=== PATIENT | male | born 1940 | race African-American/Black ===

== ENCOUNTER 2021-05-26 14:02 | Inpatient (IN) | payer OTHER, MEDICAID ==
[~2021-05-26] VITALS: Ht 167.6 cm; Wt 60.3 kg
[~2021-05-26 14:02] MED LIST: ASPI-1497 MT; ATOR-2 MT; BISO10TA11 MT; FAMO-135 MT; HYDR-4346 MT; LEVE500T98 MT; LOSA1TAB40 MT; MIRT-89 MT; TAMS-11 PO
[2021-05-26] MEDS ORDERED: SODIUM CHLORIDE 0.9% 1000ML BAG (SEPSIS BOLUS) IV ONE (14:30)
[2021-05-26 15:19] LABS: HEMATOCRIT. 33.7 % (42.0-52.0); HEMOGLOBIN. 10.8 g/dL (14.0-18.0); MEAN CORPUSCULAR HEMOGLOBIN 25.7 pg (28.0-32.0); MEAN CORPUSCULAR VOLUME 79.8 fL (80.0-94.0); RED BLOOD CELL COUNT 4.22 mill/uL (4.7-6.1); RED CELL DISTRIBUTION WIDTH 23.7 % (11.6-14.6)
[2021-05-26 15:23] LABS: CHLORIDE 107 mEq/L (98-107)
[2021-05-26 15:42] LABS: MEAN PLATELET VOLUME 9.6 fl (7.4-10.4); PLATELET 64 x1000/uL (130-400)
[2021-05-26 16:07] LABS: PLATELET ESTIMATE DECREASED
[2021-05-26] MEDS ORDERED: PIPERACILLIN/TAZ 3.375G PREMIX 50 ML IV ONE (16:45)
[2021-05-26] MEDS ORDERED: VANCOMYCIN 1 G PREMIX 200 ML IV ONE (16:45)
[2021-05-26] MEDS ORDERED: ACETAMINOPHEN 650MG SUPP PR PRN (21:15)
[2021-05-26] MEDS ORDERED: ONDANSETRON HCL 4MG/2ML INJ IV PRN (21:15)
[2021-05-26] MEDS ORDERED: SODIUM CHLORIDE 0.45% 1,000 ML IV SCH (22:00)
[2021-05-26] MEDS: PANTOPRAZOLE SODIUM 40 MG/VIAL IV SCH (23:37)
[2021-05-27] VITALS (61 sets, daily range): BP systolic 47–171; BP diastolic 24–114
[2021-05-27] MEDS ORDERED: NALOXONE HCL 0.4MG/ML VIAL IV PRN (04:30)
[2021-05-27] MEDS: DEXT 5%/0.45% NACL 1000ML 1,000 ML IV SCH ×2 (05:19→21:02)
[2021-05-27] MEDS: BLOOD SUGAR DIAGNOSTIC STRIP TEST SCH ×4 (06:13→21:02)
[2021-05-27] MEDS: DEXTROSE 50% WATER 50ML SYRINGE IV PRN ×2 (06:19→21:48)
[2021-05-27] MEDS: INSULIN LISPRO 100 UNITS/ML SUBCUT SCH ×4 (07:20→21:00)
[2021-05-27] MEDS: PANTOPRAZOLE SODIUM 40 MG/VIAL IV SCH ×2 (08:02→21:01)
[2021-05-27] MEDS: HYDROMORPHONE HCL/PF 2MG/ML CPJ IV PRN ×2 (09:53→23:20)
[2021-05-27] MEDS ORDERED: IPRATROPIUM/ALBUTEROL 0.5-3(2.5)MG/3ML NEB HHN PRN (12:45)
[2021-05-27] MEDS ORDERED: TAMSULOSIN HCL 0.4MG SR CAPSULE PO SCH (12:45)
[2021-05-27] MEDS ORDERED: LIDOCAINE HCL 1% 20ML VIAL (Pyxis) INJ ONE (13:39)
[2021-05-27] MEDS ORDERED: LEVOFLOXACIN 250MG PREMIX 50 ML IV SCH (14:00)
[2021-05-27] MEDS: PHENYLEPHRINE 100 MG in DEXT 5% WATER 240 ML IV PRN (14:27)
[2021-05-27] MEDS: METRONIDAZOLE 500 MG PREMIX 100 ML IV SCH (14:34)
[2021-05-27 14:48] LABS: HEMATOCRIT. 29.3 % (42.0-52.0); HEMOGLOBIN. 9.6 g/dL (14.0-18.0); MEAN CORPUSCULAR HEMOGLOBIN 26.3 pg (28.0-32.0); RED BLOOD CELL COUNT 3.66 mill/uL (4.7-6.1); RED CELL DISTRIBUTION WIDTH 23.2 % (11.6-14.6)
[2021-05-27 14:54] LABS: CHLORIDE 110 mEq/L (98-107)
[2021-05-27 15:01] LABS: TOTAL IRON BINDING CAPACITY 210 ug/dL (250-450)
[2021-05-27 15:04] LABS: PLATELET 39 x1000/uL (130-400)
[2021-05-27 15:31] LABS: CLARITY URINE CLOUDY (CLEAR); COLOR URINE DARK YELLOW (YELLOW); KETONES URINE NEGATIVE (NEGATIVE); LEUKOCYTE ESTERASE URINE TRACE (NEGATIVE); NITRITE URINE NEGATIVE (NEGATIVE); OCCULT BLOOD URINE 1+ (NEGATIVE); PROTEIN URINE 3+ (NEGATIVE); SPECIFIC GRAVITY URINE 1.015 (1.005-1.030); UROBILINOGEN URINE 0.2 E.U./dL (0.2-1.0)
[2021-05-27 15:50] LABS: *AMPHETAMINES SCREEN URINE NEGATIVE (NEGATIVE); *BARBITURATES SCREEN URINE NEGATIVE (NEGATIVE); *BENZODIAZEPINES SCREEN URINE NEGATIVE (NEGATIVE); *COCAINE SCREEN URINE NEGATIVE (NEGATIVE)
[2021-05-27 15:52] LABS: CANNABINOID URINE SCREEN NEGATIVE (NEGATIVE); METHADONE URINE SCREEN NEGATIVE (NEGATIVE); OPIATES URINE SCREEN NEGATIVE (NEGATIVE); PHENCYCLIDINE URINE SCREEN NEGATIVE (NEGATIVE)
[2021-05-27 20:16] LABS: PLATELET ESTIMATE MARKEDLY DECREASED
[2021-05-27] MEDS ORDERED: SODIUM BICARBONATE 8.4% 1 MEQ/ML 50ML SYR IV NR (20:30)
[2021-05-27] MEDS: LEVETIRACETAM 500MG PREMIX 100 ML IV SCH (21:01)
[2021-05-27 21:10] LABS: BG BASE EXCESS -9.6 mmol/L (-2.0-2.0); BG CARBOXYHEMOGLOBIN 0.2 % (0.5-1.5); BG DEOXYHEMOGLOBIN 4.9 % (0.0-5.0); BG FRACTION INSPIRED OXYGEN 36; BG HCO3 ACT 16.6 mmol/L (22.0-26.0); BG METHEMOGLOBIN 0.3 % (0.0-1.5); BG OXYGEN SATURATION 95.1 % (92.0-98.5); BG OXYHEMOGLOBIN 94.6 % (94.0-97.0); BG PH 7.269 (7.350-7.450); BG PO2 88.1 mmHg (75.0-100.0); BG SAMPLE SITE RIGHT RADIAL; BG TOTAL HEMOGLOBIN 10.4 g/dL (12.0-18.0); BG VENT MODE NASAL CANNULA
[2021-05-27 21:58] LABS: INR 1.5; PARTIAL THROMBOPLASTIN TIME 60.5 sec (23.4-31.0); PROTHROMBIN TIME 15.6 sec (9.6-11.0)
[2021-05-28] VITALS (101 sets, daily range): BP systolic 57–159; BP diastolic 33–126
[2021-05-28] MEDS: PHENYLEPHRINE 100 MG in DEXT 5% WATER 240 ML IV PRN ×3 (01:23→21:29)
[2021-05-28] MEDS: METRONIDAZOLE 500 MG PREMIX 100 ML IV SCH ×4 (01:23→21:25)
[2021-05-28] MEDS: HYDROMORPHONE HCL/PF 2MG/ML CPJ IV PRN (07:11)
[2021-05-28] MEDS: VASOPRESSIN 20 UNIT in SODIUM CHLORIDE 0.9% 99 ML IV PRN ×2 (07:19→17:13)
[2021-05-28] MEDS: DEXT 5%/0.45% NACL 1000ML 1,000 ML IV SCH (07:41)
[2021-05-28] MEDS: INSULIN LISPRO 100 UNITS/ML SUBCUT SCH ×3 (08:00→17:57)
[2021-05-28] MEDS: BLOOD SUGAR DIAGNOSTIC STRIP TEST SCH ×4 (08:00→21:13)
[2021-05-28] MEDS: LEVETIRACETAM 500MG PREMIX 100 ML IV SCH ×2 (08:03→21:25)
[2021-05-28] MEDS: PANTOPRAZOLE SODIUM 40 MG/VIAL IV SCH ×2 (08:06→16:48)
[2021-05-28] MEDS ORDERED: EPINEPHRINE 0.1MG/ML (1:10,000) 10ML SYR ONE (08:16)
[2021-05-28] MEDS ORDERED: SODIUM BICARBONATE 8.4% 1 MEQ/ML 50ML SYR IV ONE (08:16)
[2021-05-28] MEDS ORDERED: VECURONIUM BROMIDE 10 MG/VIAL IV ONE (08:16)
[2021-05-28] MEDS ORDERED: ETOMIDATE 2MG/ML 10ML VIAL IV ONE (08:16)
[2021-05-28] MEDS ORDERED: DEXTROSE 50% WATER 50ML SYRINGE IV ONE (08:16)
[2021-05-28] MEDS ORDERED: SODIUM CHLORIDE 0.9% 10ML VIAL ONE (08:16)
[2021-05-28 08:31] LABS: BG BASE EXCESS -11.5 mmol/L (-2.0-2.0); BG CARBOXYHEMOGLOBIN 0.7 % (0.5-1.5); BG DEOXYHEMOGLOBIN 3.9 % (0.0-5.0); BG FRACTION INSPIRED OXYGEN 34; BG METHEMOGLOBIN 0.1 % (0.0-1.5); BG OXYGEN SATURATION 96.1 % (92.0-98.5); BG OXYHEMOGLOBIN 95.3 % (94.0-97.0); BG PCO2 36.1 mmHg (35.0-45.0); BG PH 7.237 (7.350-7.450); BG PO2 96.6 mmHg (75.0-100.0); BG SAMPLE SITE RIGHT RADIAL; BG TOTAL HEMOGLOBIN 9.2 g/dL (12.0-18.0); BG VENT MODE VENT - AC
[2021-05-28 09:51] LABS: HEMATOCRIT. 25.7 % (42.0-52.0); HEMOGLOBIN. 8.5 g/dL (14.0-18.0); MEAN CORPUSCULAR HEMOGLOBIN 26.4 pg (28.0-32.0); MEAN CORPUSCULAR VOLUME 79.5 fL (80.0-94.0); RED BLOOD CELL COUNT 3.24 mill/uL (4.7-6.1); RED CELL DISTRIBUTION WIDTH 23.6 % (11.6-14.6)
[2021-05-28] MEDS ORDERED: FENTANYL CITRATE/PF 2,500 MCG in SODIUM CHLORIDE 0.9% 200 ML IV PRN (10:15)
[2021-05-28 10:40] LABS: NUCLEATED RED BLOOD CELLS 4 /100 WBC
[2021-05-28 10:41] LABS: PLATELET ESTIMATE DECREASED
[2021-05-28 10:43] LABS: MEAN PLATELET VOLUME 8.5 fl (7.4-10.4); PLATELET 85 x1000/uL (130-400)
[2021-05-28] MEDS ORDERED: DOPAMINE 400MG/250ML PREMIX 250 ML IV SCH (11:00)
[2021-05-28] MEDS ORDERED: SODIUM BICARBONATE 8.4% 1 MEQ/ML 50ML SYR IV SCH (11:00)
[2021-05-28] MEDS ORDERED: NOREPINEPHRINE 8MG/250ML PMX 250 ML IV SCH (11:15)
[2021-05-28 11:18] LABS: BG BASE EXCESS -12.7 mmol/L (-2.0-2.0); BG CARBOXYHEMOGLOBIN 0.1 % (0.5-1.5); BG DEOXYHEMOGLOBIN 0.4 % (0.0-5.0); BG FRACTION INSPIRED OXYGEN 100; BG HCO3 ACT 13.1 mmol/L (22.0-26.0); BG METHEMOGLOBIN 0.4 % (0.0-1.5); BG OXYGEN SATURATION 99.6 % (92.0-98.5); BG OXYHEMOGLOBIN 99.1 % (94.0-97.0); BG PCO2 29.6 mmHg (35.0-45.0); BG PH 7.264 (7.350-7.450); BG PO2 323.2 mmHg (75.0-100.0); BG SAMPLE SITE RIGHT RADIAL; BG TOTAL HEMOGLOBIN 9.1 g/dL (12.0-18.0); BG TOTAL RESPIRATORY RATE 20 b/min; BG VENT MODE VENT - AC
[2021-05-28] MEDS: NOREPINEPHRINE 8 MG in DEXTROSE 5% WATER 250 ML IV PRN ×2 (11:33→18:16)
[2021-05-28] MEDS ORDERED: SODIUM BICARBONATE 100 MEQ in DEXTROSE 5% WATER 1,000 ML IV SCH (12:00)
[2021-05-28 16:43] LABS: HEMATOCRIT 24.8 % (42.0-52.0)
[2021-05-28 17:19] LABS: BG BASE EXCESS -12.4 mmol/L (-2.0-2.0); BG CARBOXYHEMOGLOBIN 0.1 % (0.5-1.5); BG DEOXYHEMOGLOBIN 6.8 % (0.0-5.0); BG HCO3 ACT 12.9 mmol/L (22.0-26.0); BG METHEMOGLOBIN 0.3 % (0.0-1.5); BG OXYGEN SATURATION 93.2 % (92.0-98.5); BG OXYHEMOGLOBIN 92.8 % (94.0-97.0); BG PCO2 27.6 mmHg (35.0-45.0); BG PH 7.289 (7.350-7.450); BG PO2 77.7 mmHg (75.0-100.0); BG SAMPLE SITE RIGHT RADIAL; BG VENT MODE VENT - AC
[2021-05-28] MEDS: DEXTROSE 50% WATER 50ML SYRINGE IV PRN (17:22)
[2021-05-28] MEDS ORDERED: DEXT 10% WATER 1,000 ML IV SCH (17:45)
[2021-05-28 18:36] LABS: TOTAL IRON BINDING CAPACITY 160 ug/dL (250-450)
[2021-05-28 18:43] LABS: T4 FREE 0.85 ng/dL (0.76-1.46)
[2021-05-28 18:54] LABS: FERRITIN 655 ng/mL (22-322)
[2021-05-28 19:25] LABS: VITAMIN B12 SERUM > 2000.0 pg/mL (211-911)
[2021-05-28 23:02] LABS: HEMATOCRIT 25.3 % (42.0-52.0); HEMOGLOBIN 7.8 g/dL (14.0-18.0)
[2021-05-29] VITALS (9 sets, daily range): BP systolic 63–139; BP diastolic 30–66
[2021-05-29] MEDS: NOREPINEPHRINE 8 MG in DEXTROSE 5% WATER 250 ML IV PRN (00:01)
[2021-05-29] MEDS: BLOOD SUGAR DIAGNOSTIC STRIP TEST SCH (00:02)
[2021-05-29] MEDS ORDERED: NOREPINEPHRINE 32 MG in DEXT 5% WATER 218 ML IV PRN (00:15)
[2021-05-29 00:26] LABS: BG BASE EXCESS -15.4 mmol/L (-2.0-2.0); BG CARBOXYHEMOGLOBIN 0.5 % (0.5-1.5); BG DEOXYHEMOGLOBIN 0.7 % (0.0-5.0); BG FRACTION INSPIRED OXYGEN 100; BG METHEMOGLOBIN 0.7 % (0.0-1.5); BG OXYGEN SATURATION 99.3 % (92.0-98.5); BG OXYHEMOGLOBIN 98.1 % (94.0-97.0); BG PCO2 27.4 mmHg (35.0-45.0); BG PO2 271.7 mmHg (75.0-100.0); BG SAMPLE SITE RIGHT FEMORAL; BG TOTAL HEMOGLOBIN 6.5 g/dL (12.0-18.0); BG VENT MODE VENT - AC
[2021-05-29] MEDS ORDERED: SODIUM BICARBONATE 8.4% 1 MEQ/ML 50ML SYR IV NR (00:45)
== END 2021-05-29 02:02 | DRG 377 ==
LOC: ER 14:16 → 6WST 18:41 → EDBEDREQ 18:44 → EDBEDREQTM 22:21 → EDBEDREQSVC 22:21 → ENRESERV 23:16 → 3WST 05-27 04:46 → CVICU 05-27 14:15
PROVIDERS: ADMIT Hospitalist; ATTEND Hospitalist
PROC: 30233N1 Transfusion of Nonautologous Red Blood Cells into Peripheral Vein, Percutaneous Approach (ICD-10-PCS; 2021-05-26)
PROC: 05HY33Z Insertion of Infusion Device into Upper Vein, Percutaneous Approach (ICD-10-PCS; 2021-05-27)
PROC: B54MZZA Ultrasonography of Right Upper Extremity Veins, Guidance (ICD-10-PCS; 2021-05-27)
PROC: 0BH17EZ Insertion of Endotracheal Airway into Trachea, Via Natural or Artificial Opening (ICD-10-PCS; principal; 2021-05-28)
PROC: 5A1935Z Respiratory Ventilation, Less than 24 Consecutive Hours (ICD-10-PCS; 2021-05-28)
PROC: 5A12012 Performance of Cardiac Output, Single, Manual (ICD-10-PCS; 2021-05-28)
PROC: 5A2204Z Restoration of Cardiac Rhythm, Single (ICD-10-PCS; 2021-05-28)
PROC: 30233R1 Transfusion of Nonautologous Platelets into Peripheral Vein, Percutaneous Approach (ICD-10-PCS; 2021-05-28)
DX: K92.2 Gastrointestinal hemorrhage, unspecified (principal); E43 Unspecified severe protein-calorie malnutrition; J96.01 Acute respiratory failure with hypoxia; I21.4 Non-ST elevation (NSTEMI) myocardial infarction; N18.6 End stage renal disease; N17.9 Acute kidney failure, unspecified; E87.2 Acidosis; I42.9 Cardiomyopathy, unspecified; I47.2 Ventricular tachycardia; J44.1 Chronic obstructive pulmonary disease with (acute) exacerbation; I13.2 Hypertensive heart and chronic kidney disease with heart failure and with stage 5 chronic kidney disease, or end stage renal disease; R18.8 Other ascites; G93.40 Encephalopathy, unspecified; Z79.899 Other long term (current) drug therapy; I25.10 Atherosclerotic heart disease of native coronary artery without angina pectoris; E87.6 Hypokalemia; I46.9 Cardiac arrest, cause unspecified; I49.01 Ventricular fibrillation; D64.9 Anemia, unspecified; D69.6 Thrombocytopenia, unspecified; E11.649 Type 2 diabetes mellitus with hypoglycemia without coma; E11.22 Type 2 diabetes mellitus with diabetic chronic kidney disease; K74.60 Unspecified cirrhosis of liver; E78.5 Hyperlipidemia, unspecified; G40.909 Epilepsy, unspecified, not intractable, without status epilepticus; N40.0 Benign prostatic hyperplasia without lower urinary tract symptoms; R57.1 Hypovolemic shock; K52.9 Noninfective gastroenteritis and colitis, unspecified; B19.20 Unspecified viral hepatitis C without hepatic coma; I50.9 Heart failure, unspecified; F41.9 Anxiety disorder, unspecified; K42.9 Umbilical hernia without obstruction or gangrene; K21.9 Gastro-esophageal reflux disease without esophagitis; K80.20 Calculus of gallbladder without cholecystitis without obstruction; K57.30 Diverticulosis of large intestine without perforation or abscess without bleeding; R62.7 Adult failure to thrive; D50.9 Iron deficiency anemia, unspecified; Z79.82 Long term (current) use of aspirin; Z87.891 Personal history of nicotine dependence; Z68.21 Body mass index [BMI] 21.0-21.9, adult
CPT/HCPCS: 36415; 36600; 70551; 71045; 74176; 76937; 80048; 80053; 80305; 81003; 82140; 82375; 82607; 82728; 82746; 82805; 82962; 83036; 83540; 83550; 83605; 83735; 84439; 84443; 84481; 84484; 85014; 85018; 85025; 85044; 86850; 86900; 86920; 93005; 94002; 99291; C1725; C9113; J1170; J1265; J1953; J1956; J2370; J2543; J3010; J3370; J3490; J7030; J7050; J7060; J7070; P9016; P9034; A4315